=== PATIENT | female | born 1950 | race Caucasian/White ===

== ENCOUNTER → 2017-06-05 | Outpatient (CLI) | payer MEDICARE, OTHER ==
[~2017-06-05] MED LIST: ALBU90OI6 INH; ARIP10 PO; ASPI81CH PO; ATOR10 PO; Abilify2 MG PO; Aspir 8181 MG PO; B-121000 MC2 PO; BUDE6HFA; BUDE6HFA INH; CEPH250A PO; CHOL10002; CLON.1 PO; CLON.3TP TOP; DIAZ5 PO; DOCU100 PO; EPIPEN0.3 MG/0.3; EPIPEN0.3 MG/0.3 IM; GABA100 PO; HYDACE5325 PO; HYDCHL25 PO; LEVFLO500 PO; Lasix40 MG PO; MECL12.5 PO; MEGESTROL400 MG/10 PO; META800 PO; METPRE2 PO; MIRT30 PO; MIRT30ST MM; MYRBETRIQ25 MG PO; NITR100CA PO; POTA10T PO; POTCHL10ER PO; Potassium Citra5 MEQ PO; SENN187 PO; SERT50 PO; SPIR25 PO; Silvadene20 GM TOP; Zofran Odt4 MG SL; [UNRECOGNIZED DRUG - OTHER]
== END ==
LOC: LAB 14:59
DX: N39.0 Urinary tract infection, site not specified (principal)
CPT/HCPCS: 87086

== ENCOUNTER 2017-06-18 00:45 | Inpatient (IN) | payer MEDICARE ==
[~2017-06-18] VITALS: Ht 160 cm; Wt 45.4 kg
[~2017-06-18 00:45] MED LIST changes: -ALBU90OI6 INH; -ARIP10 PO; -Abilify2 MG PO; -Aspir 8181 MG PO; -B-121000 MC2 PO; -BUDE6HFA; -DOCU100 PO; -EPIPEN0.3 MG/0.3; -EPIPEN0.3 MG/0.3 IM; -GABA100 PO; -Lasix40 MG PO; -MEGESTROL400 MG/10 PO; -META800 PO; -MIRT30ST MM; -MYRBETRIQ25 MG PO; -POTA10T PO; -POTCHL10ER PO; -Potassium Citra5 MEQ PO; -SENN187 PO; -SPIR25 PO; -Silvadene20 GM TOP
[2017-06-18] MEDS ORDERED: MEGESTROL400 MG/10 PO (01:02)
[2017-06-18 01:37] LABS: BASOPHILS ABSOLUTE AUTO 0.03 K/mm3 (0.00-0.23); BASOPHILS PERCENT AUTO 0 % (0-2); EOSINOPHILS ABSOLUTE AUTO 0.06 K/mm3 (0.00-0.68); EOSINOPHILS PERCENT AUTO 1 % (0-6); Hematocrit 39.9 % (33.0-51.0); Hemoglobin 12.2 g/dL (11.5-16.0); IMMATURE GRAN ABSOLUTE AUTO 0.05 K/mm3 (0.00-0.10); IMMATURE GRAN PERCENT AUTO 0 % (0-1); LYMPHOCYTES ABSOLUTE AUTO 0.69 K/mm3 (0.84-5.20); LYMPHOCYTES PERCENT AUTO 6 % (21-46); MONOCYTES ABSOLUTE AUTO 0.16 K/mm3 (0.16-1.47); MONOCYTES PERCENT AUTO 1 % (4-13); Mean Corpuscular HGB 24.5 pg (26.0-34.0); Mean Corpuscular HGB Conc 30.6 g/dL (31.5-36.5); Mean Corpuscular Volume 80 fL (80-100); Mean Platelet Volume 10.4 fL (9.1-12.4); NEUTROPHILS ABSOLUTE AUTO 10.88 K/mm3 (1.96-9.15); NEUTROPHILS PERCENT AUTO 92 % (41-73); Platelet Count 287 K/mm3 (150-400); RDW Coefficient Variation 14.8 % (11.7-14.2); RDW Standard Deviation 42.7 fL (35.1-46.3); Red Blood Cell Count 4.98 M/mm3 (3.80-5.20); White Blood Cell Count 11.87 K/mm3 (4.00-11.30)
[2017-06-18 01:38] LABS: Source, Urine Clean Catch
[2017-06-18 01:42] LABS: Bilirubin, Urine Neg (Neg); Blood, Urine 4+ (Neg); Glucose Qualitative, Urine Neg (Neg); Ketones, Urine Neg (Neg); Leukocyte Esterase, Urine 3+ (Neg); Nitrite, Urine Neg (Neg); Protein, Urine 3+ (Neg); Specific Gravity, Urine 1.015 (1.003-1.022); Urobilinogen, Urine NORM (Normal)
[2017-06-18 01:55] LABS: Albumin, Blood 2.9 g/dL (3.4-5.0); Albumin/Globulin Ratio 0.7 (0.8-1.8); Bilirubin, Total 0.7 mg/dL (0.1-1.0); Bun/Creatinine Ratio 20.7 (12.0-20.0); Calcium, Blood 8.4 mg/dL (8.5-10.1); Creatinine, Blood 1.11 mg/dL (0.40-1.00); Potassium, Blood 4.2 mmol/L (3.5-5.5); Total Protein, Blood 6.9 g/dL (6.4-8.2)
[2017-06-18 01:59] LABS: Appearance, Urine Cloudy (Clear); Color, Urine Yellow (P-Yellow)
[2017-06-18 02:01] LABS: Bacteria Many /hpf; Red Blood Cells, Urine TNTC /hpf (0-2); Squamous Epithelial Cells Few /hpf (Few); White Blood Cells, Urine TNTC /hpf (0-5)
[2017-06-18 02:21] LABS: Influenza A Negative (NEGATIVE); Influenza B Negative (NEGATIVE)
[2017-06-19 05:14] LABS: Hematocrit 33.7 % (33.0-51.0); Hemoglobin 10.2 g/dL (11.5-16.0); Mean Corpuscular HGB 24.6 pg (26.0-34.0); Mean Corpuscular HGB Conc 30.3 g/dL (31.5-36.5); Mean Corpuscular Volume 81 fL (80-100); Mean Platelet Volume 10.8 fL (9.1-12.4); Platelet Count 190 K/mm3 (150-400); RDW Coefficient Variation 15.5 % (11.7-14.2); RDW Standard Deviation 45.7 fL (35.1-46.3); Red Blood Cell Count 4.14 M/mm3 (3.80-5.20)
[2017-06-19 05:41] LABS: Anion Gap 11 mmol/L (6-16); Blood Urea Nitrogen 30 mg/dL (8-24); Bun/Creatinine Ratio 16.8 (12.0-20.0); CO2, Blood 18 mmol/L (21-32); Chloride, Blood 116 mmol/L (98-108); Creatinine, Blood 1.79 mg/dL (0.40-1.00); Glomerular Filtration Rate 30 (60-); Glucose, Blood 82 mg/dL (70-99); Potassium, Blood 4.6 mmol/L (3.5-5.5); Sodium, Blood 145 mmol/L (136-145)
[2017-06-19 05:42] LABS: BAND PERCENT MAN 21 % (0-8); BASOPHILS PERCENT MAN 0 % (0-2); EOSINOPHILS ABSOLUTE MAN 0.11 K/mm3 (0.00-0.68); EOSINOPHILS PERCENT MAN 2 % (0-6); LYMPHOCYTES ABSOLUTE MAN 0.44 K/mm3 (0.84-5.20); LYMPHOCYTES PERCENT MAN 8 % (21-46); METAMYELOCYTE ABSOLUTE MAN 0.16 K/mm3 (0.00-0.00); METAMYELOCYTE PERCENT MAN 3 % (0-0); MONOCYTES PERCENT MAN 0 % (4-13); NEUTROPHILS ABSOLUTE MAN 4.87 K/mm3 (1.96-9.15); SEG NEUTROPHILS PERCENT MAN 66 % (41-73); TOTAL CELLS COUNTED 100
[2017-06-19 06:00] LABS: Calcium, Blood 7.4 mg/dL (8.5-10.1)
[2017-06-20 06:47] LABS: Hematocrit 33.9 % (33.0-51.0); Hemoglobin 10.6 g/dL (11.5-16.0)
[2017-06-20 07:08] LABS: Anion Gap 8 mmol/L (6-16); Blood Urea Nitrogen 40 mg/dL (8-24); Bun/Creatinine Ratio 16.6 (12.0-20.0); CO2, Blood 25 mmol/L (21-32); Chloride, Blood 108 mmol/L (98-108); Creatinine, Blood 2.41 mg/dL (0.40-1.00); Glomerular Filtration Rate 21 (60-); Glucose, Blood 87 mg/dL (70-99); Phosphorus, Blood 5.3 mg/dL (2.5-4.9); Potassium, Blood 4.6 mmol/L (3.5-5.5); Sodium, Blood 141 mmol/L (136-145)
[2017-06-21 05:46] LABS: Hematocrit 31.1 % (33.0-51.0); Hemoglobin 9.5 g/dL (11.5-16.0)
[2017-06-21 06:44] LABS: Anion Gap 10 mmol/L (6-16); Blood Urea Nitrogen 50 mg/dL (8-24); Bun/Creatinine Ratio 23.4 (12.0-20.0); CO2, Blood 22 mmol/L (21-32); Calcium, Blood 7.9 mg/dL (8.5-10.1); Chloride, Blood 113 mmol/L (98-108); Creatinine, Blood 2.14 mg/dL (0.40-1.00); Glomerular Filtration Rate 24 (60-); Glucose, Blood 113 mg/dL (70-99); Magnesium, Blood 2.1 mg/dL (1.6-2.4); Phosphorus, Blood 4.2 mg/dL (2.5-4.9); Potassium, Blood 3.8 mmol/L (3.5-5.5); Sodium, Blood 145 mmol/L (136-145)
[2018-04-08] MEDS ORDERED: DIAZ5 PO (12:10)
[2018-04-08] MEDS ORDERED: DOCU100 PO (12:12)
[2018-04-08] MEDS ORDERED: Aspir 8181 MG PO (12:13)
[2018-04-08] MEDS ORDERED: GABA100 PO (12:14)
[2018-04-08] MEDS ORDERED: MYRBETRIQ25 MG PO (12:15)
[2018-04-08] MEDS ORDERED: ARIP10 PO ×2 (12:15→12:19)
[2018-04-08] MEDS ORDERED: B-121000 MC2 PO (12:16)
[2018-04-08] MEDS ORDERED: POTA10T PO (12:18)
[2018-04-10] MEDS ORDERED: EPIPEN0.3 MG/0.3 (09:03)
[2018-04-10] MEDS ORDERED: BUDE6HFA (09:03)
== END 2017-06-21 15:14 | disposition short-term general hospital (02) | DRG 699 ==
LOC: ER 00:45 → MEDS 00:46
PROVIDERS: Emergency Medicine; Family Medicine; Internal Medicine Nephrology
DX: T83.511A Infection and inflammatory reaction due to indwelling urethral catheter, initial encounter (principal); N17.9 Acute kidney failure, unspecified; L89.152 Pressure ulcer of sacral region, stage 2; E44.0 Moderate protein-calorie malnutrition; E87.2 Acidosis; J44.9 Chronic obstructive pulmonary disease, unspecified; G35 Multiple sclerosis; N39.0 Urinary tract infection, site not specified; N18.9 Chronic kidney disease, unspecified; B95.4 Other streptococcus as the cause of diseases classified elsewhere; E88.09 Other disorders of plasma-protein metabolism, not elsewhere classified; D63.1 Anemia in chronic kidney disease; R80.9 Proteinuria, unspecified; R31.29 Other microscopic hematuria; E78.5 Hyperlipidemia, unspecified; D27.9 Benign neoplasm of unspecified ovary; Z87.440 Personal history of urinary (tract) infections; Z88.5 Allergy status to narcotic agent; Z88.2 Allergy status to sulfonamides; Z88.8 Allergy status to other drugs, medicaments and biological substances; Z79.82 Long term (current) use of aspirin; Z79.818 Long term (current) use of other agents affecting estrogen receptors and estrogen levels; Z79.899 Other long term (current) drug therapy
CPT/HCPCS: 36415; 51701; 51702; 71046; 74176; 76770; 80053; 80069; 81001; 83605; 83735; 85014; 85018; 85025; 87040; 87086; 87804; 94640; 94760; 96365; 96375; 97110; 97162; 97530; 99285; G0378; G8978; G8979; J0696; J0881; J1650; J1885; J1940; J1956; J2405; J7030; J7042; J7070; P9041

== ENCOUNTER → 2017-06-30 | Outpatient (CLI) | payer MEDICARE ==
[~2017-06-30] MED LIST changes: +ALBU90OI6 INH; +ARIP10 PO; +Abilify2 MG PO; +Aspir 8181 MG PO; +B-121000 MC2 PO; +BUDE6HFA; +DOCU100 PO; +EPIPEN0.3 MG/0.3; +EPIPEN0.3 MG/0.3 IM; +GABA100 PO; +Lasix40 MG PO; +MEGESTROL400 MG/10 PO; +META800 PO; +MIRT30ST MM; +MYRBETRIQ25 MG PO; +POTA10T PO; +POTCHL10ER PO; +Potassium Citra5 MEQ PO; +SENN187 PO; +SPIR25 PO; +Silvadene20 GM TOP
[2017-06-30 12:55] LABS: Protein, Urine Quantitative 108.4 mg/dL (0.0-11.9)
== END ==
LOC: LAB 10:00
PROVIDERS: Internal Medicine Nephrology
DX: N18.4 Chronic kidney disease, stage 4 (severe) (principal); N25.81 Secondary hyperparathyroidism of renal origin; E55.9 Vitamin D deficiency, unspecified; D50.9 Iron deficiency anemia, unspecified; D51.8 Other vitamin B12 deficiency anemias
CPT/HCPCS: 81050; 82043; 84156

== ENCOUNTER 2017-07-06 08:36 | Day surgery (SDC) | payer MEDICARE, OTHER ==
[~2017-07-06 08:36] MED LIST changes: -ALBU90OI6 INH; -ARIP10 PO; -Abilify2 MG PO; -Aspir 8181 MG PO; -B-121000 MC2 PO; -BUDE6HFA; -DOCU100 PO; -EPIPEN0.3 MG/0.3; -EPIPEN0.3 MG/0.3 IM; -GABA100 PO; -Lasix40 MG PO; -META800 PO; -MIRT30ST MM; -MYRBETRIQ25 MG PO; -POTA10T PO; -POTCHL10ER PO; -Potassium Citra5 MEQ PO; -SENN187 PO; -SPIR25 PO; -Silvadene20 GM TOP
[2017-07-06] MEDS ORDERED: MIRT30ST MM (10:13)
[2017-07-06] MEDS ORDERED: EPIPEN0.3 MG/0.3 IM (10:14)
[2017-07-06] MEDS ORDERED: SENN187 PO (10:14)
[2017-07-06] MEDS ORDERED: ALBU90OI6 INH (10:14)
[2017-07-06] MEDS ORDERED: SPIR25 PO (10:15)
[2017-07-06] MEDS ORDERED: Abilify2 MG PO (10:17)
[2017-07-06] MEDS ORDERED: Silvadene20 GM TOP (10:17)
[2017-07-06] MEDS ORDERED: POTCHL10ER PO (10:19)
[2017-07-06] MEDS ORDERED: Lasix40 MG PO (10:19)
[2017-07-06] MEDS ORDERED: Potassium Citra5 MEQ PO (10:22)
[2018-04-08] MEDS ORDERED: DIAZ5 PO (12:10)
[2018-04-08] MEDS ORDERED: DOCU100 PO (12:12)
[2018-04-08] MEDS ORDERED: Aspir 8181 MG PO (12:13)
[2018-04-08] MEDS ORDERED: GABA100 PO (12:14)
[2018-04-08] MEDS ORDERED: ARIP10 PO ×2 (12:15→12:19)
[2018-04-08] MEDS ORDERED: MYRBETRIQ25 MG PO (12:15)
[2018-04-08] MEDS ORDERED: B-121000 MC2 PO (12:16)
[2018-04-08] MEDS ORDERED: POTA10T PO (12:18)
[2018-04-10] MEDS ORDERED: EPIPEN0.3 MG/0.3 (09:03)
[2018-04-10] MEDS ORDERED: BUDE6HFA (09:03)
== END 2017-07-06 10:47 | disposition home or self-care (01) ==
LOC: ATC 08:36 → EDSTATUS 07-03 10:55 → LAB FUT 07-03 10:55
DX: G35 Multiple sclerosis (principal); D58.0 Hereditary spherocytosis; R50.9 Fever, unspecified; N18.9 Chronic kidney disease, unspecified; J44.9 Chronic obstructive pulmonary disease, unspecified
CPT/HCPCS: 36415; 36430; 86900; 86901; P9059

== ENCOUNTER → 2017-07-22 | Outpatient (CLI) | payer MEDICARE ==
[~2017-07-22] MED LIST changes: +ALBU90OI6 INH; +ARIP10 PO; +Abilify2 MG PO; +Aspir 8181 MG PO; +B-121000 MC2 PO; +BUDE6HFA; +DOCU100 PO; +EPIPEN0.3 MG/0.3; +EPIPEN0.3 MG/0.3 IM; +GABA100 PO; +Lasix40 MG PO; +META800 PO; +MIRT30ST MM; +MYRBETRIQ25 MG PO; +POTA10T PO; +POTCHL10ER PO; +Potassium Citra5 MEQ PO; +SENN187 PO; +SPIR25 PO; +Silvadene20 GM TOP
[2017-07-23 10:07] LABS: Calcium, Urine 5.5 mg/dL (2.0-17.5); Phosphorus, Urine 64.9 mg/dL (20.0-60.0)
[2017-07-23 10:15] LABS: Creatinine Urine 57.7 mg/dL (27.00-270.00); Protein, Urine Quantitative 56.3 mg/dL (0.0-11.9); Uric Acid, Urine 46.8 mg/dL (7.5-49.5)
== END | disposition home or self-care (01) ==
LOC: OLS 09:00
PROVIDERS: Internal Medicine Nephrology
DX: N18.2 Chronic kidney disease, stage 2 (mild) (principal); D63.1 Anemia in chronic kidney disease; N20.0 Calculus of kidney; R80.9 Proteinuria, unspecified
CPT/HCPCS: 81050; 82043; 82131; 82340; 82507; 82530; 82570; 83945; 84105; 84133; 84156; 84300; 84560

== ENCOUNTER 2017-08-27 18:16 | Emergency (ER) | payer MEDICARE ==
[~2017-08-27] VITALS: Ht 160 cm; Wt 48.5 kg
[~2017-08-27 18:16] MED LIST changes: -ARIP10 PO; -Aspir 8181 MG PO; -B-121000 MC2 PO; -BUDE6HFA; -DOCU100 PO; -EPIPEN0.3 MG/0.3; -GABA100 PO; -META800 PO; -MYRBETRIQ25 MG PO; -POTA10T PO
[2017-08-27 19:30] LABS: BASOPHILS ABSOLUTE AUTO 0.05 K/mm3 (0.00-0.23); BASOPHILS PERCENT AUTO 0 % (0-2); EOSINOPHILS ABSOLUTE AUTO 0.13 K/mm3 (0.00-0.68); EOSINOPHILS PERCENT AUTO 1 % (0-6); Hematocrit 41.8 % (33.0-51.0); Hemoglobin 12.4 g/dL (11.5-16.0); IMMATURE GRAN ABSOLUTE AUTO 0.04 K/mm3 (0.00-0.10); IMMATURE GRAN PERCENT AUTO 0 % (0-1); LYMPHOCYTES ABSOLUTE AUTO 2.29 K/mm3 (0.84-5.20); LYMPHOCYTES PERCENT AUTO 18 % (21-46); MONOCYTES ABSOLUTE AUTO 1.37 K/mm3 (0.16-1.47); MONOCYTES PERCENT AUTO 11 % (4-13); Mean Corpuscular HGB Conc 29.7 g/dL (31.5-36.5); Mean Corpuscular Volume 74 fL (80-100); Mean Platelet Volume 10.4 fL (9.1-12.4); NEUTROPHILS ABSOLUTE AUTO 8.86 K/mm3 (1.96-9.15); NEUTROPHILS PERCENT AUTO 70 % (41-73); Platelet Count 337 K/mm3 (150-400); RDW Coefficient Variation 18.1 % (11.7-14.2); RDW Standard Deviation 46.5 fL (35.1-46.3); Red Blood Cell Count 5.63 M/mm3 (3.80-5.20); White Blood Cell Count 12.74 K/mm3 (4.00-11.30)
[2017-08-27 20:00] LABS: Alanine Aminotransfer (ALT/SGP 14 U/L (12-78); Albumin, Blood 3.2 g/dL (3.4-5.0); Albumin/Globulin Ratio 0.7 (0.8-1.8); Alk Phos 96 U/L (50-136); Anion Gap 8 mmol/L (6-16); Aspartate Aminotrans (AST/SGOT 18 U/L (12-37); Bilirubin, Total 0.7 mg/dL (0.1-1.0); Blood Urea Nitrogen 24 mg/dL (8-24); Bun/Creatinine Ratio 20.7 (12.0-20.0); CO2, Blood 26 mmol/L (21-32); Calcium, Blood 9.3 mg/dL (8.5-10.1); Chloride, Blood 104 mmol/L (98-108); Creatinine, Blood 1.16 mg/dL (0.40-1.00); Globulin, Blood 4.3 g/dL (2.2-4.0); Glomerular Filtration Rate 50 (60-); Glucose, Blood 81 mg/dL (70-99); Potassium, Blood 3.5 mmol/L (3.5-5.5); Sodium, Blood 138 mmol/L (136-145); Total Protein, Blood 7.5 g/dL (6.4-8.2); Troponin I <0.015 ng/mL (0.000-0.040)
[2017-08-27] MEDS ORDERED: META800 PO (23:06)
== END 2017-08-27 23:13 | disposition home or self-care (01) ==
LOC: ER 18:16
PROVIDERS: Emergency Medicine
DX: R51 Headache (principal); Z91.030 Bee allergy status; Z88.5 Allergy status to narcotic agent; Z88.2 Allergy status to sulfonamides; Z88.1 Allergy status to other antibiotic agents; Z88.8 Allergy status to other drugs, medicaments and biological substances; Z79.899 Other long term (current) drug therapy; Z79.82 Long term (current) use of aspirin; F17.210 Nicotine dependence, cigarettes, uncomplicated
CPT/HCPCS: 36415; 71046; 80053; 83880; 84484; 85025; 93005; 93010; 96374; 96375; 99284; J1200; J1885; J2405; J3010

== ENCOUNTER 2017-08-30 11:58 | Emergency (ER) | payer MEDICARE ==
[~2017-08-30] VITALS: Ht 160 cm; Wt 48.5 kg
[~2017-08-30 11:58] MED LIST changes: +META800 PO
== END 2017-08-30 14:23 | disposition home or self-care (01) ==
LOC: ER 11:58
DX: M46.92 Unspecified inflammatory spondylopathy, cervical region (principal); G35 Multiple sclerosis; Z91.030 Bee allergy status; Z88.5 Allergy status to narcotic agent; Z88.2 Allergy status to sulfonamides; Z88.8 Allergy status to other drugs, medicaments and biological substances; Z79.899 Other long term (current) drug therapy; Z79.82 Long term (current) use of aspirin; F17.210 Nicotine dependence, cigarettes, uncomplicated
CPT/HCPCS: 71046; 72125; 93005; 93010; 96374; 96375; 96376; 99284; J2405; J3010

== ENCOUNTER 2018-06-22 12:29 | Emergency (ER) | payer MEDICARE ==
[~2018-06-22] VITALS: Ht 157.5 cm; Wt 46.7 kg
[~2018-06-22 12:29] MED LIST changes: +ARIP10 PO; +Aspir 8181 MG PO; +B-121000 MC2 PO; +BUDE6HFA; +DOCU100 PO; +EPIPEN0.3 MG/0.3; +GABA100 PO; +MYRBETRIQ25 MG PO; +POTA10T PO
[2018-06-22 13:04] LABS: Source, Urine Catheter
[2018-06-22 13:08] LABS: Appearance, Urine Cloudy (Clear); Bilirubin, Urine Neg (Neg); Blood, Urine 5+ (Neg); Color, Urine Amber (P-Yellow); Glucose Qualitative, Urine Neg (Neg); Ketones, Urine Neg (Neg); Leukocyte Esterase, Urine 3+ (Neg); Nitrite, Urine Neg (Neg); Protein, Urine 2+ (Neg); Urobilinogen, Urine NORM (Normal)
[2018-06-22 13:18] LABS: Squamous Epithelial Cells Not Seen /hpf (Few); White Blood Cells, Urine 25-50 /hpf (0-5)
[2018-06-22 13:19] LABS: Bacteria Few /hpf; Red Blood Cells, Urine TNTC /hpf (0-2)
[2018-06-22 13:21] LABS: Yeast/Fungi Urine Not Seen /hpf
[2018-06-22 13:25] LABS: BASOPHILS ABSOLUTE AUTO 0.05 K/mm3 (0.00-0.23); BASOPHILS PERCENT AUTO 1 % (0-2); EOSINOPHILS ABSOLUTE AUTO 0.13 K/mm3 (0.00-0.68); EOSINOPHILS PERCENT AUTO 1 % (0-6); Hematocrit 45.8 % (33.0-51.0); Hemoglobin 14.1 g/dL (11.5-16.0); IMMATURE GRAN ABSOLUTE AUTO 0.03 K/mm3 (0.00-0.10); IMMATURE GRAN PERCENT AUTO 0 % (0-1); LYMPHOCYTES ABSOLUTE AUTO 2.08 K/mm3 (0.84-5.20); LYMPHOCYTES PERCENT AUTO 21 % (21-46); MONOCYTES ABSOLUTE AUTO 0.76 K/mm3 (0.16-1.47); MONOCYTES PERCENT AUTO 8 % (4-13); Mean Corpuscular HGB Conc 30.8 g/dL (31.5-36.5); Mean Corpuscular Volume 91 fL (80-100); Mean Platelet Volume 10.3 fL (9.1-12.4); NEUTROPHILS PERCENT AUTO 70 % (41-73); Platelet Count 262 K/mm3 (150-400); RDW Coefficient Variation 13.4 % (11.7-14.2); RDW Standard Deviation 45.3 fL (35.1-46.3); Red Blood Cell Count 5.04 M/mm3 (3.80-5.20); White Blood Cell Count 10.15 K/mm3 (4.00-11.30)
[2018-06-22] MEDS ORDERED: LOSA25 PO (13:37)
[2018-06-22] MEDS ORDERED: CRANBERRY 6,001 EACH PO (13:40)
[2018-06-22 13:55] LABS: Alanine Aminotransfer (ALT/SGP 16 U/L (12-78); Albumin, Blood 3.1 g/dL (3.4-5.0); Albumin/Globulin Ratio 0.8 (0.8-1.8); Alk Phos 70 U/L (50-136); Anion Gap 7 mmol/L (6-16); Aspartate Aminotrans (AST/SGOT 10 U/L (12-37); Bilirubin, Total 0.4 mg/dL (0.1-1.0); Blood Urea Nitrogen 23 mg/dL (8-24); Bun/Creatinine Ratio 23.5 (12.0-20.0); CO2, Blood 26 mmol/L (21-32); Calcium, Blood 8.7 mg/dL (8.5-10.1); Chloride, Blood 109 mmol/L (98-108); Creatinine, Blood 0.98 mg/dL (0.40-1.00); Globulin, Blood 3.8 g/dL (2.2-4.0); Glomerular Filtration Rate >60 (60-); Glucose, Blood 87 mg/dL (70-99); Potassium, Blood 4.2 mmol/L (3.5-5.5); Sodium, Blood 142 mmol/L (136-145); Total Protein, Blood 6.9 g/dL (6.4-8.2)
== END 2018-06-22 15:02 | disposition home or self-care (01) ==
LOC: ER 12:29
PROVIDERS: Physician Assistant
DX: R31.9 Hematuria, unspecified (principal); F17.210 Nicotine dependence, cigarettes, uncomplicated; Z88.2 Allergy status to sulfonamides; Z88.5 Allergy status to narcotic agent; Z88.8 Allergy status to other drugs, medicaments and biological substances; Z91.030 Bee allergy status; Z79.899 Other long term (current) drug therapy; Z79.82 Long term (current) use of aspirin
CPT/HCPCS: 36415; 74176; 80053; 81001; 85025; 87086; 99284-25

== ENCOUNTER → 2018-08-12 | Outpatient (CLI) | payer MEDICARE ==
[~2018-08-12] MED LIST changes: +CRANBERRY 6,001 EACH PO; +FURO40 PO; +LOSA25 PO; +PROM25 PR
[2018-08-12 12:23] LABS: Bilirubin, Urine Neg (Neg); Blood, Urine 5+ (Neg); Glucose Qualitative, Urine Neg (Neg); Ketones, Urine Neg (Neg); Leukocyte Esterase, Urine 3+ (Neg); Nitrite, Urine Neg (Neg); Protein, Urine 2+ (Neg); Specific Gravity, Urine 1.005 (1.003-1.022); Urobilinogen, Urine NORM (Normal)
[2018-08-12 12:47] LABS: Appearance, Urine Hazy (Clear); Color, Urine Yellow (P-Yellow); White Blood Cells, Urine TNTC /hpf (0-5)
[2018-08-12 12:49] LABS: Bacteria Many /hpf; Squamous Epithelial Cells Rare /hpf (Few)
[2018-08-12 12:50] LABS: Yeast/Fungi Urine Mod /hpf
== END ==
LOC: LAB 11:58 → LAB SHORT 11:58
PROVIDERS: Urology
DX: N39.0 Urinary tract infection, site not specified (principal)
CPT/HCPCS: 81001; 88108

== ENCOUNTER 2018-09-04 00:21 | Day surgery (SDC) | payer MEDICARE ==
--- NOTE | 2018-09-04 16:20 | NUR ---
PT AND S.O. STAT NO CHANGES IN HEALTH HX SINCE LAST VISIT.
== END 2018-09-04 16:35 | disposition home or self-care (01) ==
LOC: ATC 00:21
DX: N39.0 Urinary tract infection, site not specified (principal); I12.9 Hypertensive chronic kidney disease with stage 1 through stage 4 chronic kidney disease, or unspecified chronic kidney disease; N18.2 Chronic kidney disease, stage 2 (mild); D63.1 Anemia in chronic kidney disease; N25.81 Secondary hyperparathyroidism of renal origin; R80.9 Proteinuria, unspecified; F17.210 Nicotine dependence, cigarettes, uncomplicated; E86.9 Volume depletion, unspecified; M81.0 Age-related osteoporosis without current pathological fracture; R31.9 Hematuria, unspecified; E55.9 Vitamin D deficiency, unspecified; Z88.5 Allergy status to narcotic agent; Z88.1 Allergy status to other antibiotic agents; Z88.2 Allergy status to sulfonamides; N20.0 Calculus of kidney
CPT/HCPCS: 96365; J0713

== ENCOUNTER 2018-09-05 00:06 | Day surgery (SDC) | payer MEDICARE | END 2018-09-05 16:00 | disposition home or self-care (01) | LOC: ATC 00:06 | DX: N39.0 Urinary tract infection, site not specified (principal); I12.9 Hypertensive chronic kidney disease with stage 1 through stage 4 chronic kidney disease, or unspecified chronic kidney disease; N18.2 Chronic kidney disease, stage 2 (mild); D63.1 Anemia in chronic kidney disease; G35 Multiple sclerosis; D58.9 Hereditary hemolytic anemia, unspecified; J44.9 Chronic obstructive pulmonary disease, unspecified; E78.5 Hyperlipidemia, unspecified; F32.9 Major depressive disorder, single episode, unspecified; F17.210 Nicotine dependence, cigarettes, uncomplicated; Z79.899 Other long term (current) drug therapy; Z79.82 Long term (current) use of aspirin; Z88.5 Allergy status to narcotic agent; Z88.2 Allergy status to sulfonamides; Z88.8 Allergy status to other drugs, medicaments and biological substances | CPT/HCPCS: 96365; J0713 ==

== ENCOUNTER 2018-09-23 08:30 | Day surgery (SDC) | payer MEDICARE | END 2018-09-23 22:37 | disposition home or self-care (01) | LOC: ATC 08:30 | DX: N39.0 Urinary tract infection, site not specified (principal); I12.9 Hypertensive chronic kidney disease with stage 1 through stage 4 chronic kidney disease, or unspecified chronic kidney disease; N18.2 Chronic kidney disease, stage 2 (mild); D63.1 Anemia in chronic kidney disease; F17.210 Nicotine dependence, cigarettes, uncomplicated; Z79.899 Other long term (current) drug therapy; Z88.5 Allergy status to narcotic agent; Z88.8 Allergy status to other drugs, medicaments and biological substances; Z88.2 Allergy status to sulfonamides | CPT/HCPCS: 96365; J0692 ==

== ENCOUNTER 2018-09-24 00:06 | Day surgery (SDC) | payer MEDICARE | END 2018-09-24 22:56 | disposition home or self-care (01) | LOC: ATC 00:06 | DX: I12.9 Hypertensive chronic kidney disease with stage 1 through stage 4 chronic kidney disease, or unspecified chronic kidney disease (principal); N18.2 Chronic kidney disease, stage 2 (mild); D63.1 Anemia in chronic kidney disease; N39.0 Urinary tract infection, site not specified; G35 Multiple sclerosis; D58.0 Hereditary spherocytosis; F17.210 Nicotine dependence, cigarettes, uncomplicated; Z79.899 Other long term (current) drug therapy; Z79.82 Long term (current) use of aspirin; Z88.5 Allergy status to narcotic agent; Z88.1 Allergy status to other antibiotic agents; Z88.2 Allergy status to sulfonamides | CPT/HCPCS: 96365; J0692 ==

== ENCOUNTER 2018-09-25 00:22 | Day surgery (SDC) | payer MEDICARE | END 2018-09-26 22:37 | disposition home or self-care (01) | LOC: ATC 00:22 | DX: I12.9 Hypertensive chronic kidney disease with stage 1 through stage 4 chronic kidney disease, or unspecified chronic kidney disease (principal); N18.2 Chronic kidney disease, stage 2 (mild); N17.9 Acute kidney failure, unspecified; D63.1 Anemia in chronic kidney disease; E55.9 Vitamin D deficiency, unspecified; N25.81 Secondary hyperparathyroidism of renal origin; R80.9 Proteinuria, unspecified; E86.9 Volume depletion, unspecified; M81.0 Age-related osteoporosis without current pathological fracture; R31.9 Hematuria, unspecified; N20.0 Calculus of kidney; F17.210 Nicotine dependence, cigarettes, uncomplicated; Z88.5 Allergy status to narcotic agent; Z88.8 Allergy status to other drugs, medicaments and biological substances; Z88.2 Allergy status to sulfonamides; Z79.82 Long term (current) use of aspirin; Z79.899 Other long term (current) drug therapy | CPT/HCPCS: 96365; J0692 ==

== ENCOUNTER 2018-11-07 15:45 | Inpatient (IN) | payer MEDICARE ==
[~2018-11-07] VITALS: Ht 162.6 cm; Wt 50.2 kg
[~2018-11-07 15:45] MED LIST changes: -CHOL10002; +CHOL10002 PO; -POTA10T PO
[2018-11-07] MEDS ORDERED: Acetaminophen1 EAC2 PO (16:12)
[2018-11-07] MEDS ORDERED: MIRT15 PO (16:14)
[2018-11-07 16:43] LABS: BASOPHILS ABSOLUTE AUTO 0.07 K/mm3 (0.00-0.23); BASOPHILS PERCENT AUTO 0 % (0-2); EOSINOPHILS ABSOLUTE AUTO 0.01 K/mm3 (0.00-0.68); EOSINOPHILS PERCENT AUTO 0 % (0-6); Hematocrit 42.1 % (33.0-51.0); Hemoglobin 13.3 g/dL (11.5-16.0); IMMATURE GRAN ABSOLUTE AUTO 0.14 K/mm3 (0.00-0.10); IMMATURE GRAN PERCENT AUTO 1 % (0-1); LYMPHOCYTES PERCENT AUTO 6 % (21-46); MONOCYTES ABSOLUTE AUTO 1.94 K/mm3 (0.16-1.47); MONOCYTES PERCENT AUTO 9 % (4-13); Mean Corpuscular HGB 27.7 pg (26.0-34.0); Mean Corpuscular HGB Conc 31.6 g/dL (31.5-36.5); Mean Corpuscular Volume 88 fL (80-100); Mean Platelet Volume 10.7 fL (9.1-12.4); NEUTROPHILS ABSOLUTE AUTO 18.58 K/mm3 (1.96-9.15); NEUTROPHILS PERCENT AUTO 85 % (41-73); Platelet Count 255 K/mm3 (150-400); RDW Coefficient Variation 13.2 % (11.7-14.2); RDW Standard Deviation 42.9 fL (35.1-46.3); White Blood Cell Count 21.94 K/mm3 (4.00-11.30)
[2018-11-07 16:58] LABS: Alanine Aminotransfer (ALT/SGP 19 U/L (12-78); Albumin, Blood 3.2 g/dL (3.4-5.0); Albumin/Globulin Ratio 0.9 (0.8-1.8); Alk Phos 84 U/L (50-136); Anion Gap 7 mmol/L (6-16); Aspartate Aminotrans (AST/SGOT 23 U/L (12-37); Bilirubin, Total 0.6 mg/dL (0.1-1.0); Blood Urea Nitrogen 21 mg/dL (8-24); Bun/Creatinine Ratio 23.9 (12.0-20.0); CO2, Blood 27 mmol/L (21-32); Calcium, Blood 8.8 mg/dL (8.5-10.1); Chloride, Blood 102 mmol/L (98-108); Creatinine, Blood 0.88 mg/dL (0.40-1.00); Globulin, Blood 3.7 g/dL (2.2-4.0); Glomerular Filtration Rate >60 (60-); Glucose, Blood 97 mg/dL (70-99); Potassium, Blood 3.3 mmol/L (3.5-5.5); Sodium, Blood 136 mmol/L (136-145); Total Protein, Blood 6.9 g/dL (6.4-8.2)
[2018-11-07 17:47] LABS: Source, Urine Catheter
[2018-11-07 18:12] LABS: Appearance, Urine Hazy (Clear); Bilirubin, Urine Neg (Neg); Blood, Urine 5+ (Neg); Color, Urine Yellow (P-Yellow); Glucose Qualitative, Urine Neg (Neg); Ketones, Urine Neg (Neg); Leukocyte Esterase, Urine 3+ (Neg); Nitrite, Urine Neg (Neg); Protein, Urine 3+ (Neg); Urobilinogen, Urine NORM (Normal)
[2018-11-07 18:31] LABS: Bacteria Mod /hpf; Red Blood Cells, Urine TNTC /hpf (0-2); Squamous Epithelial Cells Rare /hpf (Few); White Blood Cells, Urine 50-100 /hpf (0-5)
[2018-11-07] MEDS ORDERED: POTA10T PO (19:46)
--- NOTE | 2018-11-08 03:15 | NUR ---
LOW BP PT WAKES EASILY IN ROOM, BP LOW. REMAINS LOW W MANUAL BP. PT HAS LR INFUSING PIV, 250ML FLUID CHALLENGE INFUSING AT THIS TIME.
[2018-11-08 03:23] LABS: BASOPHILS ABSOLUTE AUTO 0.09 K/mm3 (0.00-0.23); BASOPHILS PERCENT AUTO 0 % (0-2); EOSINOPHILS PERCENT AUTO 0 % (0-6); Hematocrit 38.2 % (33.0-51.0); Hemoglobin 11.9 g/dL (11.5-16.0); IMMATURE GRAN ABSOLUTE AUTO 0.85 K/mm3 (0.00-0.10); IMMATURE GRAN PERCENT AUTO 3 % (0-1); LYMPHOCYTES ABSOLUTE AUTO 1.06 K/mm3 (0.84-5.20); LYMPHOCYTES PERCENT AUTO 3 % (21-46); MONOCYTES PERCENT AUTO 7 % (4-13); Mean Corpuscular HGB Conc 31.2 g/dL (31.5-36.5); Mean Corpuscular Volume 90 fL (80-100); Mean Platelet Volume 10.4 fL (9.1-12.4); NEUTROPHILS ABSOLUTE AUTO 26.98 K/mm3 (1.96-9.15); NEUTROPHILS PERCENT AUTO 86 % (41-73); Platelet Count 192 K/mm3 (150-400); RDW Coefficient Variation 13.4 % (11.7-14.2); RDW Standard Deviation 44.1 fL (35.1-46.3); Red Blood Cell Count 4.25 M/mm3 (3.80-5.20); White Blood Cell Count 31.28 K/mm3 (4.00-11.30)
[2018-11-08 03:44] LABS: Alanine Aminotransfer (ALT/SGP 17 U/L (12-78); Albumin, Blood 2.4 g/dL (3.4-5.0); Albumin/Globulin Ratio 0.7 (0.8-1.8); Alk Phos 62 U/L (50-136); Anion Gap 7 mmol/L (6-16); Aspartate Aminotrans (AST/SGOT 21 U/L (12-37); Bilirubin, Total 0.6 mg/dL (0.1-1.0); Blood Urea Nitrogen 19 mg/dL (8-24); CO2, Blood 25 mmol/L (21-32); Calcium, Blood 7.4 mg/dL (8.5-10.1); Chloride, Blood 107 mmol/L (98-108); Creatinine, Blood 0.95 mg/dL (0.40-1.00); Globulin, Blood 3.3 g/dL (2.2-4.0); Glomerular Filtration Rate >60 (60-); Glucose, Blood 97 mg/dL (70-99); Potassium, Blood 3.7 mmol/L (3.5-5.5); Sodium, Blood 139 mmol/L (136-145); Total Protein, Blood 5.7 g/dL (6.4-8.2)
--- NOTE | 2018-11-08 04:30 | NUR ---
PROVIDER CALLED ABOUT BP PER PROVIDER, BOLUS 1L OF LR AND RECHECK BP.
--- NOTE | 2018-11-08 05:20 | NUR ---
SHIFT SUMMARY PT SLEEPING IN ROOM COMFORTABLY AT THIS TIME, W/ DAUGHTER AT BEDSIDE. PT ARRIVED TO UNIT VERY PAINFUL TO TOUCH AND MOVEMENT. RESP SHALLOW UNLABORED ON RA W/ SATS >92%. PT HAS HX MS AND HAS LITTLE TO NO SENSATION FROM MID ABD DOWN. BLE ELEVATED ON PILLOWS. PT HAS LR INFUSING IN IN PIV AT 200ML/HR. PT WAS MEDICATED UPON ARRIVAL FOR SLEEP, AND PAIN. AT APPROX 0315 THIS AM, PT BP LOWERED SIGNIFICANTLY. NO CHANGES IN MENTAL STATUS, PT WAKES EASILY TO VERBAL AND IS ABLE TO STATE NAME AND , AND EVENT. FLUID CHALLENGE WAS GIVEN TO PT FOR 1L LR PER PROVIDER. PT SAT UP AND ATE SMALL SNACK, FED BY DAUGHTER, BP INCREASED TO 90'S SYSTOLIC. PT WENT BACK TO SLEEP AND BP AGAIN DECREASED. PROVIDER UPDATED, MAINTANENCE FLUIDS INCREASED FROM 125 TO 200ML/HR, AND LAB ORDERS PLACED. PER PROVIDER MONITOR PT AND REEVALUATE AFTER LAB RESULTS. CALL LIGHT IS IN REACH. DAUGHTER AT BEDSIDE.
--- NOTE | 2018-11-08 07:50 | NUR ---
AM NOTE. ASSUMED CARE OF PT APROX 0700, PT IS A&Ox4, HAS HX OF M.S. PT WAS ADMITTED FOR SEVERE SEPSIS. PT HAS SUPER-PUBIC CATH. 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 MONITORS INTACT, NSR IN THE 80'S, PT IS HYPOTENSIVE, NOT SYMPTOMATIC AT THIS TIME. PT IS C/O OF SEVERE PAIN 10/10 IN HER BACK/NECK/SHOULDERS/COCCYX. PT HAS BEEN MEDICATED PER EMAR WITH CAUTION. PT'S FAMILY IS AT THE BEDSIDE. UPDATE PROVIDED. CALL LIGHT IN REACH, BED IS LOCKED AND LOW WILL CONTINUE TO MONITOR.
--- NOTE | 2018-11-08 12:35 | NUR ---
PT UPDATE... PT'S BP CONTINUES TO BE HYPOTENSIVE, PT IS ON LR AT 200 MLS/HR, 500 ML BOLUS OF LR GIVEN AND FLUIDS CHANGED TO NS AT 200 MLS/HR. PT WAS CHANGED FROM PCU STATUS TO ICU STATUS AND CRITICAL CARE CONSULT WAS PLACED. CRITICAL CARE PROVDER AT THE BEDSIDE FOR ASSESSMENT. WILL CONTINUE TO MONITOR.
--- NOTE | 2018-11-08 14:00 | NUR ---
ASSUMPTION OF CARE/ INITIAL ASSESSMENT PATIENT RESTING IN BED QUIETLY UPON ENTERING ROOM. PATIENT CALM, COOPERATIVE, FLAT AFFECT. PATIENT ALERT AND ORIENTED X 4, AFEBRILE. PATIENT REPORTS N/T IN UPPER EXTREMITIES. PATIENT STATES SHE IS NUMB FROM THE WASTE DOWN DUE TO HER MS. PATIENT WEAK IN UPPER EXTREMITIES, NO MOVEMENT IN LOWER EXTREMITIES. PATIENT COMPLAINS OF PAIN IN HER BACK, NECK, COCCYX. PATIENT SATTING 90% AND GREATER ON RA. LUNGS CLEAR IN UPPER LOBES, DIMINISHED IN LOWER LOBES. SHALLOW BREATHS NOTED. PATIENT IN SR, HR IN THE 70S. SBP 70S TO 80S. DR. YARBROUGH AWARE. PULSES 1+ IN THE LOWER EXTREMITIES, 2+ RADIAL. PATIENT/ FAMILY REFUSES SCDS. GI WNL. PATIENT HAS SUPRAPUBIC CATHETER IN PLACE- DRAINING DARK ORANGE COLORED URINE. 2+ EDEMA NOTED IN BLES. OCCYX REDDENED- MEPILEX IN PLACE- C/D/I. SCATTERED BRUISES NOTED. SKIN FRAGILE. NS INFUSING AT 200 MLS/ HOUR. POTASSIUM OF 3.3 THIS AM- DR. YARBROUGH AWARE. FAMILY AT BEDSIDE. BED LOW, CALL LIGHT IN REACH. WILL CONTINUE TO MONITOR PATIENT FREQUENTLY THROUGHOUT SHIFT.
--- NOTE | 2018-11-08 16:35 | NUR ---
PATIENT RESTING QUIETLY IN BED, SPEAKING WITH VISITORS. PATIENT HAS NO COMPLAINTS AT THIS TIME AND REFUSES REPOSITIONING. PATIENT HAS TEMP OF 99.7 DEGREES FAHRENHEIT, ALTHOUGH HAS MANY BLANKETS ON FEELS COOL. PATIENT REMAINS SATTING 90% AND GREATER ON RA. PATIENT IN SR, HR 60S TO 70S. SBP IN THE 70S. DR. YARBROUGH NOTIFIED OF CONTINUED LOW BLOOD PRESSURE. LEVOPHED ORDERED AND STARTED AT 2 MCG/ MINUTE. NO OTHER ACUTE CHANGES TO NOTE ON AT THIS TIME. WILL CONTINUE TO MONITOR.
--- NOTE | 2018-11-08 18:57 | NUR ---
SHIFT SUMMARY PATIENT REMAINED ALERT AND ORIENTED. PATIENT HAD TMAX OF 99.7 DEGREES FAHRENHEIT. PATIENT RECEIVED PRN MEDICATIONS FOR COMPLAINT OF PAIN IN BACK, NECK, AND COCCYX. PATIENT REMAINED SATTING 90% AND GREATER ON RA. PATIENT SB TO SR, HR 50S TO 70S. SBP 70S TO 80S WHEN ASSUMED CARE. BLOOD PRESSURE NOW STABLE ON LEVOPHED AT 1 MCG/ MINUTE. SCHEDULED MIDODRINE AND SOLUMEDROL STARTED TODAY. GI WNL. PATIENT HAS ADEQUATE APPETITE. SUPRAPUBIC CATHETER DRAINING DARK ORANGE COLORED URINE. NO CHANGE TO SKIN. NS INFUSING AT 200 MLS/ HOUR. 2G CALCIUM CHLORIDE GIVEN TODAY FOR IONIZED CALCIUM OF 1.05. FAMILY HAS BEEN IN AND OUT ALL DAY. PATIENT HAS NO COMPLAINTS AT THIS TIME. BED LOW, CALL LIGHT IN REACH. WILL BE GIVING REPORT TO ONCOMING LINSEED OIL ORDER FILLER NURSE SHORTLY.
--- NOTE | 2018-11-08 19:20 | NUR ---
ASSUMED CARE PT IN BED WITH DAUGHTER BERNARDO IN ROOM. DISCUSSED PLAN FOR OVERNIGHT WITH BOTH PT AND DTR. PER DTR, PT HAD A ROUGH NIGHT LAST NIGHT AND ARE HOPEFUL THAT PT WILL BE ABLE TO HAVE IMPROVED PAIN CONTROL NOW THAT LEVOPHED HAS BED STARTED AND BE ABLE TO SLEEP. PT AND DAUGHTER BOTH REQUESTED THAT PT BE ALLOWED TO SLEEP AND SLEEP NOT BE INTERRUPTED FOR REPOSITIONING. DTR PLANS TO SPEND THE NIGHT AND WILL CALL FOR ANY PT NEEDS. NS AT 200ML/HR, LEVOPHED AT 1MCG/MIN VIA BERNICE PICC WITH MAPS >60. PT MEDICATED FOR PAIN, DISCUSSED PM MEDS AND SUPRAPUBIC CATHETER CARE PLANS.
--- NOTE | 2018-11-08 19:57 | NUR ---
Initial Visit: Called by ICU nurses to see this pt to discuss goals of care. Pt may qualify for hospice due to her extensive health challenges. Pt is alert, oriented. She reports extreme pain, and tells me that she isn't able to have pain medication due to her low blood pressures. She appears irritable, anxious. Reviewed that she is very critically ill. She has been refusing some treatments, per nursing. She has not wanted another IV to run needed medications. Pt is not wanting to converse. Her body language is closed and she is not engaging in conversation. She states that she would like to keep her care plan and says," now when is that nurse going to come start my IV?" Pt will need further conversation and work with palliative care. We will follow for symptoms and support nursing, advocate for the pt's wishes. Will plan on making follow up visit to see if pt would like to engage. She does have an advance directive and a POLST in place. Both seem very appropriate. Healthcare designates are clearly identified, and wishes are expressed clearly. Will remain available.
--- NOTE | 2018-11-09 02:44 | NUR ---
UPDATE PT AWAKE, SITTING UP IN BED CONFUSED. PT HAD BEEN PREVIOUSLY RESTING WELL. ONCE AWAKE WAS INITIALLY CONFUSED TO LOCATION AND THOUGHT SHE WAS IN HER OWN HOME AND ASKED ABOUT HER REMOTES. REORIENTED BY DAUGHTER. PT CONTINUES TO DENY PAIN AND IS NOW RESTING WITH EYES CLOSED. DTR REMAINS IN ROOM. LEVOPHED NOW OFF D/T MAP OF 90.
[2018-11-09 03:41] LABS: Hematocrit 34.9 % (33.0-51.0); Hemoglobin 10.8 g/dL (11.5-16.0); Mean Corpuscular HGB 28.4 pg (26.0-34.0); Mean Corpuscular HGB Conc 30.9 g/dL (31.5-36.5); Mean Corpuscular Volume 92 fL (80-100); Mean Platelet Volume 10.7 fL (9.1-12.4); Platelet Count 158 K/mm3 (150-400); RDW Coefficient Variation 13.5 % (11.7-14.2); RDW Standard Deviation 46.1 fL (35.1-46.3); White Blood Cell Count 23.66 K/mm3 (4.00-11.30)
[2018-11-09 03:59] LABS: Albumin/Globulin Ratio 0.6 (0.8-1.8); Bilirubin, Total 0.3 mg/dL (0.1-1.0); Bun/Creatinine Ratio 20.8 (12.0-20.0); Calcium, Blood 8.4 mg/dL (8.5-10.1); Creatinine, Blood 1.06 mg/dL (0.40-1.00); Globulin, Blood 3.2 g/dL (2.2-4.0); Potassium, Blood 3.9 mmol/L (3.5-5.5); Total Protein, Blood 5.2 g/dL (6.4-8.2)
[2018-11-09 05:32] LABS: BAND PERCENT MAN 5 % (0-8); BASOPHILS PERCENT MAN 0 % (0-2); EOSINOPHILS PERCENT MAN 0 % (0-6); LYMPHOCYTES ABSOLUTE MAN 2.36 K/mm3 (0.84-5.20); LYMPHOCYTES PERCENT MAN 10 % (21-46); MONOCYTES ABSOLUTE MAN 0.47 K/mm3 (0.16-1.47); MONOCYTES PERCENT MAN 2 % (4-13); NEUTROPHILS ABSOLUTE MAN 20.82 K/mm3 (1.96-9.15); SEG NEUTROPHILS PERCENT MAN 83 % (41-73); TOTAL CELLS COUNTED 100
--- NOTE | 2018-11-09 06:50 | NUR ---
SHIFT SUMMARY NO ACUTE EVENTS OVERNIGHT. LEVOPHED OFF SINCE 299 WITH NO FURTHER REPORTS OF PAIN. VSS, ECG HAS BEEN SB WHILE ASLEEP BUT WHEN AWAKE, HR IN THE 70'S. PT'S DAUGHTER HAS BEEN IN ROOM ALL NIGHT AND HAS BEEN CALLING WHEN PT NEEDS ASSISTANCE BUT HER PRIMARY GOAL WAS TO LET PT SLEEP. NS CONTINUES AT 200ML/HR WITH ONLY 350ML OUTPUT.
--- NOTE | 2018-11-09 09:00 | NUR ---
INITIAL ASSESSMENT PATIENT AWAKE AND HELPED 1-2 PERSON TRANSFER ASSIST TO BSC AND THEN TO CHAIR. PATIENT CALM, COOPERATIVE, WITH FLAT AFFECT. PATIENT ALERT AND ORIENTED X 4, AFEBRILE. PATIENT WEAK BUT ABLE TO MOVE UPPER EXTREMITIES. PATIENT UNABLE TO FEEL FROM WAIST DOWN AND UNABLE TO MOVE LOWER EXTREMITIES PER HX OF MS. PATIENT DENIES PAIN OR DISCOMFORT AT THIS TIME. PATIENT SATTING 90% AND GREATER ON RA. LUNGS CLEAR IN UPPER LOBES AND DIMINISHED IN LOWER LOBES. SHALLOW BREATHS NOTED. PATIENT IN SB TO SR, HR 40S TO 60S. BP STABLE. PATIENT RESOURCE COORDINATOR RN REPORTED THAT LEVOPHED TURNED OFF AROUND 0300. PATIENT REFUSES SCDS. PATIENT HAD BM OF HARD, BROWN PELLETS THIS AM. SCHEDULED AM COLACE GIVEN. CHRONIC SUPRAPUBIC CATHETER IN PLACE- DRAINING DARK YELLOW COLORED URINE. 2+ EDEMA NOTED TO BLES- PATIENT'S DAUGHTER STATES THIS IS NORMAL FOR PATIENT. COCCYX REDDENED. SKIN FRAGILE, SCATTERED BRUISES NOTED. NS INFUSING AT 200 MLS/ HOUR. BED LOW, CALL LIGHT IN REACH. DAUGHTER AND AT BEDSIDE. WILL CONTINUE TO MONITOR PATIENT FREQUENTLY THROUGHOUT SHIFT.
--- NOTE | 2018-11-09 09:45 | NUR ---
DR. YARBROUGH IN ROOM TO SEE PATIENT AND SPEAK WITH FAMILY. INFORMED THAT LEVOPHED OFF AROUND 0300 IN MORNING, THAT BPS HAVE BEEN STABLE AND THAT PATIENT HAD 350 CC URINE OUT DURING BIT SHARPENER OPERATOR. ALSO INFORMED THAT URINE CULTURE SHOWING LEAH ALBICANS AND THAT SUPRAPUBIC CATHETER LAST CHANGED A FEW DAYS PRIOR TO ADMIT. ORDERS RECEIVED.
[2018-11-09 11:56] LABS: Source, Urine Catheter
--- NOTE | 2018-11-09 12:26 | NUR ---
PATIENT SITTING UP EATING LUNCH IN BED. PATIENT HAS NO COMPLAINTS AT THIS TIME. PATIENT HAS TEMP OF 99.2 DEGREES FAHRENHEIT. PATIENT HAS ROOM TEMP UP, GLASS DOOR CLOSED AND SEVERAL BLANKETS ON. PATIENT STATES SHE DOES NOT LIKE TO BE COLD. PATIENT IN SB, HR IN THE 50S. SBP IN THE 150S. SUPRAPUBIC CATHETER CHANGED PER PROTOCOL HAD NOT BEEN CHANGED SINCE ADMIT. NEW URINE CULTURE SENT TO LAB PER PROTOCOL. NO OTHER ACUTE CHANGES TO NOTE ON AT THIS TIME. FRIEND AT BEDSIDE. WILL CONTINUE TO MONITOR.
[2018-11-09 12:28] LABS: Bilirubin, Urine Neg (Neg); Blood, Urine 5+ (Neg); Glucose Qualitative, Urine 2+ (Neg); Ketones, Urine Neg (Neg); Leukocyte Esterase, Urine 2+ (Neg); Nitrite, Urine Neg (Neg); Protein, Urine 2+ (Neg); Specific Gravity, Urine 1.015 (1.003-1.022); Urobilinogen, Urine NORM (Normal)
[2018-11-09 12:33] LABS: Appearance, Urine Hazy (Clear); Color, Urine Yellow (P-Yellow)
[2018-11-09 12:34] LABS: Red Blood Cells, Urine TNTC /hpf (0-2); Squamous Epithelial Cells Few /hpf (Few)
[2018-11-09 12:35] LABS: Bacteria Few /hpf; Transitional Epithelial Cells Few /hpf (0-Rare); Yeast/Fungi Urine Many /hpf
--- NOTE | 2018-11-09 15:48 | NUR ---
PATIENT VISITING IN ROOM WITH DAUGHTER AND FRIEND. PATIENT DENIES PAIN OR DISCOMFORT AT THIS TIME. AFEBRILE. VITAL SIGNS STABLE. PATIENT GIVEN COMPLETE BEDBATH. NO ACUTE CHANGES TO NOTE ON AT THIS TIME.
--- NOTE | 2018-11-09 16:20 | NUR ---
DR. YARBROUGH NOTIFIED THAT PATIENT'S SBP HAS INCREASED TO 160S TO 180S. ORDERS RECEIVED TO DC MIDODRINE AND SOLU-CORTEFF AND DECREASE LR TO 50 MLS/ HOUR FROM 150.
--- NOTE | 2018-11-09 18:50 | NUR ---
SHIFT SUMMARY PATIENT REMAINED ALERT AND ORIENTED. PATIENT HAD NO COMPLAINTS OF PAIN THROUGHOUT SHIFT. PATIENT HAD TMAX OF 99.2 DEGREES FAHRENHEIT. PATIENT TRANSFERRED WELL WITH 1-2 PERSON ASSIST TO CHAIR. PATIENT REMAINED SATTING 90% AND GREATER ON RA. PATIENT REMAINED SB TO SR, HR 40S TO 60S. BP STABLE AT BEGINNING OF SHIFT BUT BECAME HYPERTENSION LATER IN SHIFT. MEDICATION ORDERS CHANGED PER DR. YARBROUGH. PATIENT HAD ONE HARD, BROWN BM OF PELLETS. SUPRAPUBIC CATHETER CHANGED PER PROTOCOL HAD NOT YET BEEN CHANGED SINCE ADMISSION. PETERSON DRAINED ADEQUATE AMOUNT OF DARK YELLOW URINE. NO CHANGE IN SKIN. LR INFUSING AT 50 MLS/ HOUR. PATIENT RECEIVED 2 GM CALCIUM CHLORIDE THIS SHIFT. PATIENT RECEIVED COMPLETE BED BATH THIS SHIFT. PATIENT HAS NO COMPLAINTS AT THIS TIME. BED LOW, CALL LIGHT IN REACH. DAUGHTER AT BEDSIDE. WILL BE GIVING REPORT TO ELIGIBILITY CONSULTANT NURSE SHORTLY.
--- NOTE | 2018-11-09 19:58 | NUR ---
ASSUMED CARE PT. ALERT AND ORIENTED THIS EVENING. FAMILY AT BEDSIDE AT THIS TIME. PT. VSS THIS PM. CURRENTLY ON RA. DENIES PAIN HOWEVER REQUESTING FLEXERIL FOR NECK STIFFNESS. PT REFUSED REPOSITIONING AT THIS TIME, PT DAUGHTER REPORTS SHE JUST SHIFTED HER OFF OF HER SIDE. SUPRAPUBIC PETERSON DRAINING TO GRAVITY. CALL LIGHT IN REACH.
--- NOTE | 2018-11-10 00:30 | NUR ---
UPDATE PT. RESTING COMFORTABLY IN BED, RR EVEN AND UNLABORED. AFEBRILE. FAMILY SLEEPING AT BEDSIDE. CALL LIGHT IN REACH.
--- NOTE | 2018-11-10 03:02 | NUR ---
[facility]: Report received from Germania HUNTER. Patient sleeping, daughter also in room. Will continue to monitor.
[2018-11-10 04:24] LABS: Hemoglobin 10.2 g/dL (11.5-16.0); Mean Corpuscular HGB Conc 30.9 g/dL (31.5-36.5); Mean Corpuscular Volume 91 fL (80-100); Platelet Count 148 K/mm3 (150-400); RDW Coefficient Variation 13.3 % (11.7-14.2); RDW Standard Deviation 44.9 fL (35.1-46.3); Red Blood Cell Count 3.64 M/mm3 (3.80-5.20); White Blood Cell Count 16.23 K/mm3 (4.00-11.30)
[2018-11-10 04:40] LABS: Bun/Creatinine Ratio 21.8 (12.0-20.0); Calcium, Blood 8.7 mg/dL (8.5-10.1); Creatinine, Blood 1.1 mg/dL (0.40-1.00); Potassium, Blood 2.6 mmol/L (3.5-5.5)
--- NOTE | 2018-11-10 06:19 | NUR ---
Shift Summary: Patient slept well throughout shift, daughter at bedside throughout night. No c/o pain, discomfort, SOB, or dyspnea. VSS, O2-93-95% on RA. PICC line to BERNICE patent and intact. Supra-pubic cath patent and intact, draining light yellow, clear urine. Morning labs showed potassium-2.6, received order per Dr. Cantu for 60meq IV KCl x1, 1st 20meq bag infusing now. Will continue to monitor until report to day shift RN.
--- NOTE | 2018-11-10 08:18 | NUR ---
INITIAL ASSESSMENT PATIENT SLEEPING UPON ENTERING ROOM. PATIENT ALERT AND ORIENTED X 4, AFEBRILE. PATIENT DENIES PAIN AT THIS TIME. N/T IN UPPER EXTREMITIES. NO FEELING OR MOVEMENT IN LOWER EXTREMITIES- HX OF MS. PATIENT SATTING 90% AND GREATER ON RA. SHALLOW BREATHS NOTED. LUNGS CLEAR IN UPPER LOBES, DIMINISHED IN LOWER LOBES. PATIENT IN SB, HR IN THE 50S. BP STABLE. GI WNL. SUPRAPUBIC CATHETER IN PLACE, DRAINING YELLOW URINE. 2+ EDEMA NOTED IN BLES. COCCYX REDDENED- MEPILEX IN PLACE. SCATTERED BRUISES NOTED. LR INFUSING AT 50 MLS/ HOUR. POTASSIUM INFUSING FOR LEVEL OF 2.6 THIS AM. BED LOW, CALL LIGHT IN REACH. DAUGHTER AT BEDSIDE. WILL CONTINUE TO MONITOR FREQUENTLY THROUGHOUT SHIFT.
--- NOTE | 2018-11-10 12:07 | NUR ---
VITAL SIGNS STABLE. PATIENT IN SR, HR IN THE 70S. BP STABLE. FAMILY AT BEDSIDE. NO OTHER ACUTE CHANGES TO NOTE ON AT THIS TIME. WILL CONTINUE TO MONITOR.
[2018-11-10] MEDS ORDERED: CEFEPIME HCL IV (14:58)
[2018-11-10] MEDS ORDERED: CYCL10 PO (15:07)
[2018-11-10] MEDS ORDERED: Culturelle1 CAP PO (15:08)
[2018-11-10] MEDS ORDERED: FAMO20 PO (15:08)
--- NOTE | 2018-11-10 16:11 | NUR ---
SHIFT SUMMARY PATIENT REMAINED ALERT AND ORIENTED, AFEBRILE T/O SHIFT. PATIENT HAD NO COMPLAINTS OF PAIN. PATIENT REMAINED SATTING 90% AND GREATER ON RA. PATIENT REMAINED SB TO SR, HR 50S TO 70S. BPS HAVE BEEN STABLE. GI WNL. SUPRAPUBIC CATHETER REMAINED DRAINING ADEQUATE AMOUNT OF YELLOW COLORED URINE. NO CHANGE IN SKIN. PATIENT RECEIVED 60 MEQ KCL TODAY FOR LEVEL OF 2.6 THIS AM. POTASSIUM LEVEL 3.5 AT 1516. IV VANCO AND ZOSYN DC'D AFTER DR. FRANCOIS RECEIVED COMPLETED URINE CULTURE. IV MAXIPIME STARTED. HOME HEALTH ORDERED. APPOINTMENTS SET UP IN AMBULATORY CLINIC FOR IV ANTIBIOTICS UNTIL HOME HEALTH IS SET UP FOR PATIENT. PICC LINE LEFT IN AND PROTOCOL ORDERED. PATIENT JUST LEFT UNIT ON MOTORIZED SCOOTER WITH AND DAUGHTER TO TAKE HOME.
== END 2018-11-10 16:00 | disposition home or self-care (01) | DRG 871 ==
LOC: ER 15:45 → ERHOLD 15:46 → ICUE 15:46
PROVIDERS: Emergency Medicine; Internal Medicine; ADMIT Family Medicine
PROC: 02HV33Z Insertion of Infusion Device into Superior Vena Cava, Percutaneous Approach (ICD-10-PCS; principal; 2018-11-08)
PROC: 4A02X4A Measurement of Cardiac Electrical Activity, Guidance, External Approach (ICD-10-PCS; 2018-11-08)
DX: A41.52 Sepsis due to Pseudomonas (principal); R65.21 Severe sepsis with septic shock; N39.0 Urinary tract infection, site not specified; G35 Multiple sclerosis; R62.7 Adult failure to thrive; R00.1 Bradycardia, unspecified; N32.9 Bladder disorder, unspecified; E83.51 Hypocalcemia; F17.210 Nicotine dependence, cigarettes, uncomplicated; J44.9 Chronic obstructive pulmonary disease, unspecified; E78.5 Hyperlipidemia, unspecified; Z66 Do not resuscitate; Z87.440 Personal history of urinary (tract) infections; Z88.5 Allergy status to narcotic agent; Z88.2 Allergy status to sulfonamides; Z88.8 Allergy status to other drugs, medicaments and biological substances
CPT/HCPCS: 36415; 36569; 71045; 74176; 80048; 80053; 81001; 82330; 82533; 83605; 84132; 85025; 85027; 87040; 87077; 87086; 87186; 94640; 94760; 96361; 96365; 96366; 96375; 96376; 97162; 99285-25; A9270; A9270-GY; C1751; C9113; G0378; J0692; J0696; J1170; J1650; J1720; J1885; J2405; J2543; J2550; J3010; J3370; J3480; J7030; J7050; J7060; J7120

== ENCOUNTER 2018-11-11 08:01 | Day surgery (SDC) | payer MEDICARE ==
[~2018-11-11 08:01] MED LIST changes: +Acetaminophen1 EAC2 PO; +CEFEPIME HCL IV; +CYCL10 PO; +Culturelle1 CAP PO; +FAMO20 PO; +MIRT15 PO; +POTA10T PO
== END 2018-11-11 16:32 | disposition home or self-care (01) ==
LOC: ATC 08:01
DX: A41.52 Sepsis due to Pseudomonas (principal); G35 Multiple sclerosis; J44.9 Chronic obstructive pulmonary disease, unspecified; R62.7 Adult failure to thrive; E78.5 Hyperlipidemia, unspecified; Z88.5 Allergy status to narcotic agent; Z88.2 Allergy status to sulfonamides; Z79.82 Long term (current) use of aspirin; Z72.0 Tobacco use; Z79.899 Other long term (current) drug therapy
CPT/HCPCS: 96365; J0692